=== PATIENT | male | born 1935 | race Caucasian/White ===

== ENCOUNTER 2016-06-16 22:08 | Emergency (ER) | payer MEDICARE, BC ==
[2016-06-16 22:34] LABS: Hematocrit 42 % (42-52); Hemoglobin 13.6 g/dl (14.0-18.0); Mean Corpuscular HGB Conc 33 g/dl (31-36); Mean Corpuscular Hemoglobin 31 pg (27-31); Mean Corpuscular Volume 95 fL (80-94); Mean Platelet Volume 8 um3 (7.4-10.4); Red Blood Count 4.38 10^6/ul (4.0-5.4); Red Cell Distribution Width 14 % (10.5-15); White Blood Count 9.3 10^3/ul (3.5-10.8)
[2016-06-16 22:47] LABS: Albumin 4.2 g/dL (3.2-5.2); BUN/Creatinine Ratio 13.8 (8-20); EGFR African American 99.1 (>60); Potassium 3.8 mmol/L (3.5-5.0); Total Bilirubin 0.5 mg/dL (0.2-1.0); Total Protein 7.2 g/dL (6.4-8.9)
--- NOTE | 2016-06-16 23:09 | RAD ---
INDICATION: Fall down stairs. Struck head. COMPARISON: February 25, 2009 TECHNIQUE: Multidetector CT images foramen magnum to lung apices without contrast. Multiplanar reformation. REPORT: Calcific plaque at the carotid bifurcations. Negative for cervical vertebral fracture or facet subluxation at any level. Negative for paravertebral hematoma. Diffuse advanced degenerative spondylosis and facet joint osteoarthritis with interval worsening compared with the 2009 exam. C2-C3: Negative for significant spinal stenosis. C3-C4: Ankylosis at the posterior margins of the vertebral bodies and facet joints. Significant dorsal spondylitic ridging with resulting moderate acquired central canal stenosis with interval worsening. Uncinate process spurring and facet joint osteoarthritis results in moderately severe LEFT foraminal stenosis with interval worsening. C4-C5: Uncinate process spurring and facet joint osteoarthritis results in mild bilateral foraminal stenosis. C5-C6: Dorsal spondylitic ridging results in mild acquired central canal stenosis. Uncinate process spurring and facet joint osteoarthritis results in mild LEFT foraminal stenosis. C6-C7: Significant dorsal spondylitic ridging results in mild to moderate acquired central canal stenosis with interval worsening. Uncinate process spurring and facet joint osteoarthritis results in moderate RIGHT and mild LEFT foraminal stenosis with interval worsening. IMPRESSION: 1. Negative for traumatic cervical spine injury. 2. Interval progression of multilevel advanced degenerative spondylosis and facet joint osteoarthritis with worsening of spinal stenosis compared with the 2009 exam as described.
--- NOTE | 2016-06-16 23:17 | RAD ---
Indication: Fell and struck head. Comparison: February 25, 2009 Technique: Noncontrast CT vertex of skull through foramen magnum. Report: Mild prominence of the cerebral sulci. Atrophy of the cerebellar vermis similar to the prior exam. Negative for duncan matter white matter obscuration, intra or extra-axial hemorrhage, or mass effect. Patent basal cisterns. Negative for calvarial or skull base fracture. Small mucous retention cyst or polyp at the medial wall of the RIGHT maxillary sinus. Negative for paranasal sinus fluid levels. Clear mastoid air spaces. Small RIGHT para midline posterior neck/occipital region scalp hematoma measuring up to 2.7 cm transverse by 0.9 cm AP. Negative for subcutaneous emphysema. IMPRESSION: 1. No evidence for traumatic brain injury. 2. Small RIGHT para midline posterior neck/occipital region scalp hematoma. 3. Mild cerebral and cerebellar vermis atrophy.
--- NOTE | 2016-06-17 00:46 | ED ---
negra Victor Timothy, scribed for Mike Desai MD on 06/16/16 at 2221 . Head Injury - HPI Summary HPI Summary: Alvin Nance is an 80 yo male [facility] a fall down approximately 6 steps at 2130. He reports that there was head trauma, but denies syncope. There are skin abrasions bilaterall on the upper extremities. Pt reports EtOH consumption of "more than I should have". He states there was carpeting on the stair treads. He states his 6/10 pain is in the lower back. He is on coumadin. His MHx includes CAD, triple bypass, Afib, HTN, anemia, osteoarthritis, tobacco use. - History Of Current Complaint Chief Complaint: EDTraumaMultiple Stated Complaint: FALL Time Seen by Provider: 06/16/16 22:15 Hx Obtained From: Patient Mechanism Of Injury: Fall From Height Of: - 6 stairs Onset/Duration: Started Minutes Ago, Still Present Onset of Pain: Immediate Severity Currently: Moderate Severity Initially: Moderate Pain Intensity: 6 Pain Scale Used: 0-10 Numeric Location: Discrete At: - lower back Anticoagulant Therapy: Coumadin - Allergies/Home Medications Allergies/Adverse Reactions: Allergies Allergy/AdvReac Type Severity Reaction Status Date / Time Codeine Allergy Severe Diarrhea Verified 12/22/15 06:52 ASPIRIN/NSAIDS Allergy Severe See Comment Uncoded 12/22/15 06:52 PMH/Surg Hx/FS Hx/Imm Hx Endocrine/Hematology History: Reports: Hx Anemia - ON MEDICATION FOR Cardiovascular History: Reports: Hx Coronary Artery Disease - 09/08/15-[facility] BYPASS-[facility], Hx Hypertension - ON MEDICATION FOR Denies: Hx Pacemaker/ICD GI History: Reports: Other GI Disorders - EXCESS GAS, DIARRHEA AT TIMES Musculoskeletal History: Reports: Hx Arthritis - OSTEO, Other Musculoskeletal History - SPINAL STENOSIS Sensory History: Reports: Hx Cataracts - BILAT, Hx Contacts or Glasses - GLASSES , Hx Glaucoma - BILATERAL Denies: Hx Hearing Aid Opthamlomology History: Reports: Hx Cataracts - BILAT, Hx Contacts or Glasses - GLASSES, Hx Glaucoma - BILATERAL - Surgical History Surgery Procedure, Year, and Place: TONSILLECTOMY & CIRCUMCISION [facility]. RIGHT ROTATOR CUFF [id number]. RIGHT CARPAL TUNNEL [id number]. LEFT ULNAR/RADIAL STEEL BING INSERTION/LEFT SHOULDER REPLACEMENT [place]. RIGHT FIBULA STEEL REPLACEMENT -2008 [place]. LEFT & RIGHT LEG VARICOSITIES REMOVED-[facility] 08/2014-[facility]. SKIN CANCER BEHIND LEFT EAR- WITH [id number] Hx Anesthesia Reactions: No Infectious Disease History: Denies: Traveled Outside the [place] in Last 30 Days - Family History Known Family History: Positive: Cardiac Disease, Hypertension Negative: Diabetes - Social History Alcohol Use: Daily Alcohol Amount: 1-2 DAILY Substance Use Type: Reports: None Hx Tobacco Use: Yes Smoking Status (MU): Former Smoker Type: Cigarettes Amount Used/How Often: UP TO 4 PPD DAILY X 30 YEARS Length of Time of Smoking/Using Tobacco: 30 YRS Have You Smoked in the Last Year: No Review of Systems Constitutional: Other - EtOH consumption Eyes: Negative ENT: Negative Cardiovascular: Negative Respiratory: Negative Gastrointestinal: Negative Genitourinary: Negative Musculoskeletal: Other - lower back pain Skin: Negative Neurological: Other - head trauma Psychological: Normal All Other Systems Reviewed And Are Negative: Yes Physical Exam Triage Information Reviewed: Yes Vital Signs On Initial Exam: Initial Vitals Temp Pulse Resp BP Pulse Ox 97 F 59 15 125/82 98 06/16/16 22:12 06/16/16 22:12 06/16/16 22:12 06/16/16 22:12 06/16/16 22:12 Vital Signs Reviewed: Yes Appearance: Positive: Well-Appearing, Pain Distress - mild discomfort. aob Skin: Positive: Warm Head/Face: Positive: Normal Head/Face Inspection Eyes: Positive: JIMBO ENT: Positive: Hearing grossly normal Neck: Positive: Nontender Respiratory/Lung Sounds: Positive: Clear to Auscultation, Breath Sounds Present Cardiovascular: Positive: RRR Abdomen Description: Positive: Nontender, Soft Musculoskeletal: Positive: Other - rt wrist swollen, deformity Neurological: Positive: Alert, Oriented to Person Place, Time, NV Bundle Intact Distally Psychiatric: Positive: Affect/Mood Appropriate Procedures - Splinting Hand-Made Type: orthoglass Splint: thumb spica Pre-Proc Neuro Vasc Exam: normal Post-Proc Neuro Vasc Exam: normal Diagnostics - Vital Signs Vital Signs Temp Pulse Resp BP Pulse Ox 06/16/16 22:12 97 F 59 15 125/82 98 - Laboratory Lab Results: Lab Results 06/16/16 06/16/16 06/16/16 Range/Units 22:22 22:22 22:22 WBC 9.3 (3.5-10.8) 10^3/ul RBC 4.38 (4.0-5.4) 10^6/ul Hgb 13.6 L (14.0-18.0) g/dl Hct 42 (42-52) % MCV 95 H (80-94) fL MCH 31 (27-31) pg MCHC 33 (31-36) g/dl RDW 14 (10.5-15) % Plt Count 256 (150-450) 10^3/ul MPV 8 (7.4-10.4) um3 Neut % (Auto) 63.0 (38-83) % Lymph % (Auto) 17.1 L (25-47) % Latimer % (Auto) 7.2 (1-9) % Eos % (Auto) 8.3 H (0-6) % Baso % (Auto) 4.4 H (0-2) % Absolute Neuts (auto) 5.9 (1.5-7.7) 10^3/ul Absolute Lymphs (auto) 1.6 (1.0-4.8) 10^3/ul Absolute Monos (auto) 0.7 (0-0.8) 10^3/ul Absolute Eos (auto) 0.8 H (0-0.6) 10^3/ul Absolute Basos (auto) 0.4 H (0-0.2) 10^3/ul Absolute Nucleated RBC 0.01 10^3/ul Nucleated RBC % 0.1 Sodium 136 (133-145) mmol/L Potassium 3.8 (3.5-5.0) mmol/L Chloride 100 L (101-111) mmol/L Carbon Dioxide 26 (22-32) mmol/L Anion Gap 10 (2-11) mmol/L BUN 13 (6-24) mg/dL Creatinine 0.94 (0.67-1.17) mg/dL Est GFR ( Amer) 99.1 (>60) Est GFR (Non-Af Amer) 77.0 (>60) BUN/Creatinine Ratio 13.8 (8-20) Glucose 118 H (70-100) mg/dL Lactic Acid 2.9 H* (0.5-2.0) mmol/L Calcium 9.0 (8.6-10.3) mg/dL Total Bilirubin 0.50 (0.2-1.0) mg/dL AST 30 (13-39) U/L ALT 23 (7-52) U/L Alkaline Phosphatase 67 (34-104) U/L Total Protein 7.2 (6.4-8.9) g/dL Albumin 4.2 (3.2-5.2) g/dL Globulin 3.0 (2-4) g/dL Albumin/Globulin Ratio 1.4 (1-3) Serum Alcohol 249 H (<10) mg/dL Result Diagrams: 06/16/16 22:22 06/16/16 22:22 Lab Statement: Any lab studies that have been ordered have been reviewed, and results considered in the medical decision making process. - Radiology R humerus Xray Interpretation: Positive (See Comments) - distal radial fracture Radiology Interpretation Completed By: ED Physician R wrist Xray Interpretation: Positive (See Comments) - distal radial fracture Radiology Interpretation Completed By: ED Physician - CT C-Spine CT Interpretation: No Acute Changes - IMPRESSION: 1. Negative for traumatic cervical spine injury. 2. Interval progression of multilevel advanced degenerative spondylosis and facet joint osteoarthritis with worsening of spinal stenosis compared with the [address] Interpretation Completed By: Radiologist Brain CT Interpretation: No Acute Changes - IMPRESSION: 1. No evidence for traumatic brain injury. 2. Small RIGHT para midline posterior neck/occipital region scalp hematoma. 3. Mild cerebral and cerebellar vermis atrophy. CT Interpretation Completed By: Radiologist - EKG 7 Cardiac Rate: NL - 60 BPM EKG Interpretation: NSR @ 60 BPM, LVH Re-Evaluation - Re-Evaluation First Eval Re-Evaluation Time: 00:40 Change: Unchanged Comment: Discussed imaging study and lab results with Pt. Head Injury Course/Dx Assessment/Plan: Alvin Nance is an 80 yo male presenting to [facility] with 6/ 10 lower back pain and head trauma without syncope S/P a fall down 6 steps. After clinical examination, EKG suggesting NSR with LVH, CT Brain suggesting no traumatic injury, CT C-Spine with no traumatic injury, X-rays of his right humerus and wrist suggesting a distal fracture of the right radius, and review of his lab work, notably a lactic acid of 2.9 and a serum alcohol of 249, he will be discharged home with a distal fracture of the right wrist and alcohol intoxication with appropriate instructions. - Diagnoses Provider Diagnoses: Distal radius fracture, right, Alcohol intoxication Discharge - Discharge Plan Condition: Stable Disposition: HOME Patient Education Materials: Wrist Fracture in Adults (ED) Referrals: Cayla Velasquez MD [Primary Care Provider] - 2 Days Radhika Wild MD [Medical Doctor] - 2 Days Additional Instructions: Please follow up with Dr. Wild regarding your visit to the emergency department today. Return to the emergency department with any new or recurring symptoms. The documentation as recorded by the negra odom Timothy accurately reflects the service I personally performed and the decisions made by me, Mike Desai MD.
[2016-06-17 01:17] VITALS: BP 99/56
--- NOTE | 2016-06-17 07:46 | RAD ---
INDICATION: Wrist pain after a fall COMPARISON: None. TECHNIQUE: 2 views right wrist and 4 views of the right upper arm were obtained. REPORT: There is a displaced fracture through the distal right radial metaphysis with the distal fracture fragment displaced laterally and dorsally relative to the proximal shaft of the radius. The remaining visualized bones of the wrist appear to be appropriately aligned. There is no fracture visible overlying the right humerus. Degenerative changes of the right shoulder include sclerotic change of the bony glenoid labrum with marginal osteophyte formation. IMPRESSION: Displaced distal right radius fracture as described above.
== END 2016-06-17 01:15 | disposition home or self-care (01) ==
LOC: ED 22:08
DX: S52.501A Unspecified fracture of the lower end of right radius, initial encounter for closed fracture (principal); F10.129 Alcohol abuse with intoxication, unspecified; Y90.8 Blood alcohol level of 240 mg/100 ml or more; M54.5 Low back pain; Z87.891 Personal history of nicotine dependence; W10.9XXA Fall (on) (from) unspecified stairs and steps, initial encounter; Y93.9 Activity, unspecified; Y92.9 Unspecified place or not applicable
CPT/HCPCS: 36415; 70450; 72125; 80053; 80320; 83605; 85025; 93005; 99283; G0480

== ENCOUNTER 2016-07-05 06:38 | Day surgery (SDC) | payer MEDICARE, BC ==
--- NOTE | 2016-06-30 14:58 | HP ---
PREOPERATIVE HISTORY AND PHYSICAL: DATE OF SURGERY/ADMISSION: 07/05/16 DATE OF OFFICE VISIT/ENCOUNTER: 06/22/16 ATTENDING SURGEON: Radhika Wild MD RESTAURANT AREA DIRECTOR: Dr. Quiles. PRIMARY CARE PHYSICIAN: Dr. Velasquez. PROCEDURE: Right wrist radius open reduction and internal fixation. CHIEF COMPLAINT: Right wrist radius fracture. HISTORY OF PRESENT ILLNESS: This is an 80-year-old male who sustained injury to his right wrist on 06/16/16 when he fell down the stairs at his home. He was seen at [facility] and had an x-ray which showed a distal fracture at the junction of the metaphysis and diaphysis of the radius. He was splinted and referred to Dr. Wild for followup. After clinical examination and review of X- ray, Dr. Wild has recommended surgical intervention in the form of a right wrist radius open reduction and internal fixation and the patient has consented to agree. He is followed by Dr. Quiles, general maintenance mechanic, for cardiovascular disease and takes Coumadin on a regular basis. Per Dr. Quiles, the patient stopped Coumadin on 06/29/16. He will follow up with Dr. Quiles 2 weeks postop for further Coumadin use considerations. PAST MEDICAL HISTORY: 1. Chronic ischemic heart disease. 2. Post inflammatory pulmonary fibrosis. 3. Dyspnea. 4. Arteriosclerosis. 5. Chronic atrial fibrillation. 6. Anemia. 7. Hyperlipidemia. 8. Hypertension. 9. History of heart attack. 10. BPH. PAST SURGICAL HISTORY: 1. 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 2. Left forearm ORIF. 3. Left shoulder replacement. 4. Right knee surgery. CURRENT MEDICATIONS: 1. Amiodarone HCl 200 mg daily. 2. Atorvastatin calcium 10 mg daily. 3. Finasteride 5 mg daily. 4. Flaxseed oil 1200 mg twice daily. 5. Furosemide 40 mg daily. 6. Lisinopril 10 mg 2 tabs daily. 7. Metformin HCl ER 750 mg daily. 8. Metoprolol succinate ER 50 mg one and a half tabs twice a day. 9. Multivitamin 1 tab daily. 10. Potassium chloride ER 10 mEq daily. 11. Restasis 0.05% one drop each eye twice a day. 12. Warfarin sodium as directed. ALLERGIES: 1. CODEINE causes nausea and vomiting. 2. NSAIDs caused stomach upset. FAMILY MEDICAL HISTORY: Heart disease. SOCIAL HISTORY: The patient is retired. He is a former smoker. He quit smoking in 1979. He smoked prior to that for approximately 30 years. He denies recreational drug use. Does admit to alcohol use on a regular occasion. REVIEW OF SYSTEMS: General: Negative for fevers, chills or night sweats. No known anesthesia problems. HEENT: Negative for headache, lightheadedness or syncopal episodes. Integumentary: Negative for abrasions, lesions or open wounds. Cardiothoracic: Positive for hypertension and history of cardiac disease. Negative for current chest pain, palpitations or edema. Pulmonary: Positive for shortness of breath with exertion. Negative for chronic cough or COPD. GI: Negative for nausea, vomiting, diarrhea, constipation or GERD. : Positive for nocturia and urinary frequency. Negative for history of UTIs or kidney problems. Musculoskeletal: Positive for current complaints. Neurological: Negative for paresthesias, numbness, history of seizures, stroke or epilepsy. Endocrine: Negative for diabetes or thyroid issues. Hematologic: Positive for easy bruising and easy bleeding secondary to Coumadin. Negative for anemia or history of DVTs. Infectious Disease: Negative for history of MRSA , hepatitis C or HIV. PHYSICAL EXAMINATION GENERAL: Well-developed, well-nourished 80-year-old male, in no acute distress. VITAL SIGNS: Height 5 feet 9 inches, weight 169 pounds, pulse rate 68, blood pressure 102/58. HEENT: Normocephalic, atraumatic. Pupils are equal, round and reactive to light and accommodation. Extraocular movements are intact. Throat is clear. NECK: Supple. No palpable lymph nodes. PULMONARY: Lungs are clear to auscultation bilaterally. No wheezes, rales or rhonchi. CARDIOVASCULAR: Regular rate and rhythm. S1, and S2. No murmurs, rubs or gallops. No edema. ABDOMEN: Positive bowel sounds. Soft and nontender. MUSCULOSKELETAL: On exam of his right wrist, there is minimal swelling about the wrist and into the fingers. He has good range of motion of his fingers and good motion of the elbow. He has ecchymosis present at the lateral aspect of the right elbow. Distal neurovascular function is intact. NEUROLOGIC: Alert and oriented x3. Cranial nerves II through XII are intact. Sensation is intact to light touch. Peripheral vascular, 2+ radial and ulnar pulses. IMAGING STUDIES: X-rays of the right wrist show a right radius distal fracture at the junction of the metaphysis and diaphysis. IMPRESSION: Right wrist distal radius fracture. PLAN: The patient is scheduled to undergo a right wrist radius open reduction and internal fixation with Dr. Wild on 07/05/16. He will return to the office 10 to 14 days postop for followup and suture removal. The patient has a supply of Oakwood from the emergency room and that will be refilled as needed for postoperative pain management. He recently saw his general maintenance mechanic, Dr. Quiles and his opinion letter of medical clearance for surgery from Dr. Velasquez, his primary care physician. LÁZARO BLANCO [id number]/[facility] #: [id number] MTDD
[~2016-07-05 06:38] MED LIST: Buffered Lidocaine 1% SYRIN* 3 ML/SYR SYRINGE INTRADERM ONE; Famotidine IV* 10 MG/ML 2 ML (20 mg) IV ONE
[2016-07-05] MEDS ORDERED: ceFAZolin 2 GM PREMIX(*) 2 GM/50 ML BAG IVPB ONE (06:46)
[2016-07-05] MEDS ORDERED: Famotidine IV* 10 MG/ML 2 ML (20 mg) ONE (06:47)
[2016-07-05] MEDS ORDERED: Bupivacaine 0.5% SDV PF* 30 ML VIAL ONE (06:58)
[2016-07-05] MEDS ORDERED: Midazolam* 1 MG/ML 5 ML VIAL (5 MG) ONE (07:38)
[2016-07-05] MEDS ORDERED: fentaNYL* 50 MCG/ML 2 ML VIAL (100 MCG VIAL) ONE ×2 (07:38→08:42)
[2016-07-05] MEDS ORDERED: KETAMINE HCL* 50 MG/ML 10 ML VIAL ONE (07:39)
[2016-07-05] MEDS ORDERED: Lidocaine 2% PF * 5 ML VIAL ONE (08:29)
[2016-07-05] MEDS ORDERED: Ketorolac INJ* 30 MG/ML 1 ML VIAL ONE (08:29)
[2016-07-05] MEDS ORDERED: Ondansetron INJ* 2 MG/ML VIAL ONE (08:29)
[2016-07-05] MEDS ORDERED: Propofol* 10 MG/ML 20 ML BTL IV PUSH ONE (08:29)
[2016-07-05] MEDS ORDERED: Dexamethasone IV* 4 MG/ML 1 ML (4 MG) ONE (08:29)
[2016-07-05] MEDS ORDERED: DiMENhydriNATE IV* 50 MG/ML VIAL IV PUSH PRN (08:53)
[2016-07-05] MEDS ORDERED: HYDROmorphone* 1 MG/ML 1 ML SYR IV PRN (08:53)
[2016-07-05] MEDS ORDERED: HYDROcodone/ACETAMIN 5-325 MG* 1 TAB PO PRN (08:53)
[2016-07-05] MEDS ORDERED: HYDROcodone/ACETAMIN 5-325 MG* 1 TAB ONE (09:31)
[2016-07-05] MEDS ORDERED: HYDROmorphone* 1 MG/ML 1 ML SYR ONE (09:51)
[2016-07-05 10:27] VITALS: BP 134/62
--- NOTE | 2016-07-06 00:45 | OP ---
DATE OF OPERATION: 07/05/16 [facility] DATE OF : 33 SURGEON: Radhika Wild MD. FLORAL ASSOCIATE: LÁZARO Romano. ANESTHESIOLOGIST: Lucy Terrell MD ANESTHESIA: General. PRE-OP DIAGNOSIS: Radius fracture on the right. POST-OP DIAGNOSIS: Radius fracture on the right. OPERATIVE PROCEDURE: Open reduction internal fixation, right radius. ESTIMATED BLOOD LOSS: Zero. TOURNIQUET TIME: About 45 minutes. INDICATION FOR PROCEDURE: Alvin is an 80-year-old male who suffered a fracture of his right radius after a fall. He presents for open reduction internal fixation as the fracture is displaced. DESCRIPTION OF PROCEDURE: The patient was brought to the operating room, was given a general anesthetic and placed in the supine position on the operating table with a tourniquet around his right upper arm. The skin of his right upper extremity was prepped and draped in the usual sterile fashion. A longitudinal incision was made on the volar aspect of the forearm over the FCR tendon. We dissected through the FCR tendon sheath superficial and deep and retracted the FPL muscles ulnarly. The pronator quadratus was subperiosteally dissected off the distal radius. There was some mild comminution of the fracture. The fracture was at approximately 1 cm distal to the metaphyseal- diaphyseal junction. The fracture was reduced and held with a reduction clamp and then secured with a metadiaphyseal Synthes plate with 4 distal and 4 proximal screws. Most of the screws were locking screws. The position of the hardware and fracture fragments were checked on the C-arm in the AP and lateral views and found to be satisfactory. The wound was copiously irrigated with saline. The flexor carpi radialis tendon sheath was repaired with 2-0 Polysorb suture. Skin edges were reapproximated with 4-0 nylon sutures and wound was dressed with Xeroform, 4x4, Webril, and a volar splint. The patient tolerated the procedure well and was brought to the recovery room in good condition. [id number]/[facility] #: [id number] MTDD
== END 2016-07-05 10:25 | disposition home or self-care (01) ==
LOC: OREAST 06:38
PROVIDERS: ATTEND Orthopaedic Surgery
DX: S52.591A Other fractures of lower end of right radius, initial encounter for closed fracture (principal); I25.9 Chronic ischemic heart disease, unspecified; Z87.891 Personal history of nicotine dependence; Z95.1 Presence of aortocoronary bypass graft; I48.2 Chronic atrial fibrillation; Z79.01 Long term (current) use of anticoagulants; I25.2 Old myocardial infarction; E11.8 Type 2 diabetes mellitus with unspecified complications; Z79.84 Long term (current) use of oral hypoglycemic drugs; I10 Essential (primary) hypertension; W10.9XXA Fall (on) (from) unspecified stairs and steps, initial encounter; Y92.009 Unspecified place in unspecified non-institutional (private) residence as the place of occurrence of the external cause
CPT/HCPCS: C1713; C1776; J0690; J1100; J1170; J1885; J2250; J2405; J2704; J3010

== ENCOUNTER 2016-10-24 03:08 | Emergency (ER) | payer MEDICARE, BC ==
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
[2016-10-24 04:25] VITALS: BP 164/78
--- NOTE | 2016-10-24 07:59 | RAD ---
HISTORY: Left forearm swelling COMPARISONS: None relevant available at the time of dictation VIEWS: 3, Frontal, lateral, and oblique views of the left forearm FINDINGS: BONE DENSITY: Normal. BONES: The patient is status post internal fixation of the mid and the distal radius and the distal ulna. There is no appreciable hardware failure or osteolysis. There is no appreciable erosion or periosteal reaction. JOINTS: There is osteoarthritis of the wrist and elbow ALIGNMENT: There is no dislocation. SOFT TISSUES: There is soft tissue swelling along the anterior aspect of the mid forearm OTHER FINDINGS: None. IMPRESSION: 1. STATUS POST INTERNAL FIXATION OF THE RADIUS AND ULNA. 2. OSTEOARTHRITIS. 3. SOFT TISSUE SWELLING. 4. NO APPRECIABLE EROSION OR PERIOSTEAL REACTION.
== END 2016-10-24 04:24 | disposition home or self-care (01) ==
LOC: ED 03:08
DX: M79.632 Pain in left forearm (principal); M79.89 Other specified soft tissue disorders; E11.9 Type 2 diabetes mellitus without complications; I25.10 Atherosclerotic heart disease of native coronary artery without angina pectoris; I10 Essential (primary) hypertension; Z95.1 Presence of aortocoronary bypass graft; Z96.612 Presence of left artificial shoulder joint; Z88.6 Allergy status to analgesic agent; Z88.5 Allergy status to narcotic agent
CPT/HCPCS: 99282

== ENCOUNTER → 2016-12-22 21:47 | Emergency (ER) | payer MEDICARE, BC ==
[2016-12-22 23:30] LABS: Hematocrit 38 % (42-52); Hemoglobin 12.9 g/dl (14.0-18.0); Mean Corpuscular HGB Conc 34 g/dl (31-36); Mean Corpuscular Hemoglobin 32 pg (27-31); Mean Corpuscular Volume 93 fL (80-94); Mean Platelet Volume 8 um3 (7.4-10.4); Red Blood Count 4.08 10^6/ul (4.0-5.4); Red Cell Distribution Width 16 % (10.5-15); White Blood Count 7.4 10^3/ul (3.5-10.8)
[2016-12-22 23:46] LABS: ALT 35 U/L (7-52); Albumin 4.2 g/dL (3.2-5.2); Alkaline Phosphatase 65 U/L (34-104); BUN/Creatinine Ratio 20.3 (8-20); Blood Urea Nitrogen 16 mg/dL (6-24); CO2 Carbon Dioxide 22 mmol/L (22-32); Calcium 8.9 mg/dL (8.6-10.3); Chloride 109 mmol/L (101-111); EGFR African American 120.8 (>60); EGFR Non-African American 93.9 (>60); Glucose 124 mg/dL (70-100); Sodium 141 mmol/L (133-145); Total Protein 7.2 g/dL (6.4-8.9)
[2016-12-22 23:56] LABS: Anion Gap 10 mmol/L (2-11)
[2016-12-23 00:03] LABS: Alcohol 242 mg/dL (<10)
[2016-12-23 00:03] LABS: Benzodiazepine Urine Screen None Detected (None Detect)
[2016-12-23 05:35] VITALS: BP 153/66
--- NOTE | 2016-12-23 07:38 | RAD ---
INDICATION: Fall. + EtOH COMPARISON: Most recent comparison chest x-rays dated December 30, 2015 TECHNIQUE: Single AP portable view of the chest was obtained. FINDINGS: Image quality is compromised due to the relative inferiority of a portable chest x-ray. Postsurgical changes include left shoulder arthroplasty, sternotomy wires and surgical clips overlying the mediastinum. Again seen is mild cardiomegaly with faint calcification overlying the arch of the aorta. The lungs are grossly clear. There is no evidence of a large pleural effusion. Visualized bones are normal for the patient's age. IMPRESSION: No radiographic evidence for acute cardiopulmonary abnormality on this portable chest x-ray.
--- NOTE | 2016-12-23 07:40 | RAD ---
INDICATION: Fall. + EtOH COMPARISON: CT of the brain June 16, 2016 TECHNIQUE: Contiguous axial sections of the brain were obtained from the skull base to the vertex without contrast. FINDINGS: The ventricles, cisterns and sulci exhibit involutional changes similar in appearance to the prior CT examination. There is mild periventricular and subcortical white matter hypoattenuation most consistent with chronic microvascular disease.. The duncan-white matter differentiation is adequately maintained and there is no sulcal effacement. No significant focal abnormality or mass effect is present. There is no evidence for intracranial hemorrhage. Again seen is engorgement of the bilateral ophthalmic veins, greater at the right than the left. No significant focal osseous abnormality is present. The visualized portion of the paranasal sinuses and mastoid air cells appear clear. IMPRESSION: 1. No CT apparent acute intracranial abnormality. 2. Right greater than left engorgement of the ophthalmic veins of uncertain clinical significance.
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
== END | disposition home or self-care (01) ==
LOC: ED 21:47
DX: F10.129 Alcohol abuse with intoxication, unspecified (principal); R47.81 Slurred speech; Z87.891 Personal history of nicotine dependence
CPT/HCPCS: 36415; 70450; 71010; 80053; 80307; 80320; 85025; 99284; G0480

== ENCOUNTER 2018-11-11 14:29 | Emergency (ER) | payer MEDICARE, BC ==
[2018-11-11 14:40] VITALS: BP 129/81
--- NOTE | 2018-11-11 15:23 | UC ---
Lower Extremity/Ankle HPI - HPI Summary HPI Summary: Bilat. knee swelling for a few days, some pain. - History of Current Complaint Chief Complaint: UCLowerExtremity Stated Complaint: R KNEE SWELLING Time Seen by Provider: 11/11/18 14:47 Hx Obtained From: Patient Onset/Duration: Sudden Onset, Lasting Days - 2 Severity Initially: Mild Severity Currently: Mild Pain Intensity: 2 Aggravating Factor(s): Standing, Ambulation Alleviating Factor(s): Nothing Able to Bear Weight: Yes - Risk Factors Gout Risk Factors: Age Over 40, Peripherial Vascular Disease - Allergies/Home Medications Allergies/Adverse Reactions: Allergies Allergy/AdvReac Type Severity Reaction Status Date / Time codeine Allergy Diarrhea Verified 11/11/18 14:40 ASPIRIN/NSAIDS Allergy Severe See Comment Uncoded 11/11/18 14:40 SEASONAL Allergy Mild Congestion Uncoded 11/11/18 14:40 Home Medications: Home Medications Amiodarone TAB* [Cordarone TAB*] 100 mg PO DAILY 11/11/18 [History Confirmed 03/31] Imatinib Mesylate [Gleevec] 400 mg PO DAILY 11/11/18 [History Confirmed 11/11/18 ] Metoprolol Succinate XL TAB* [Toprol XL TAB*] 75 mg PO BID 11/11/18 [History Confirmed 11/11/18] Multivitamin [Multivitamins] 1 cap PO DAILY 11/11/18 [History Confirmed 11/11/18 ] PMH/Surg Hx/FS Hx/Imm Hx Previously Healthy: No Cardiovascular History: Cardiac Disease, Atrial Fibrillation Cancer History: Other - CML - Surgical History Surgical History: Yes Surgery Procedure, Year, and Place: TONSILLECTOMY & CIRCUMCISION 1939 [facility]. RIGHT ROTATOR CUFF [id number]. RIGHT CARPAL TUNNEL [id number]. LEFT ULNAR/RADIAL STEEL BING INSERTION/LEFT SHOULDER REPLACEMENT [place]. RIGHT FIBULA STEEL REPLACEMENT -2008 [place]. LEFT & RIGHT LEG VARICOSITIES REMOVED-[facility] [place] 2012. 08/2014-TRIPLE BYPASS-[facility]. SKIN CANCER BEHIND LEFT EAR- WITH [id number] - Family History Known Family History: Positive: Cardiac Disease, Hypertension Negative: Diabetes - Social History Alcohol Use: Daily Alcohol Amount: 1-2 DAILY Substance Use Type: None Smoking Status (MU): Former Smoker Type: Cigarettes Amount Used/How Often: UP TO 4 PPD DAILY X 30 YEARS Length of Time of Smoking/Using Tobacco: 30 YRS Have You Smoked in the Last Year: No When Did the Patient Quit Smoking/Using Tobacco: 30 YEARS AGO Review of Systems All Other Systems Reviewed And Are Negative: Yes Musculoskeletal: Positive: Edema Is Patient Immunocompromised?: No Physical Exam Triage Information Reviewed: Yes Appearance: Well-Appearing, Well-Nourished, Pain Distress Vital Signs: Initial Vital Signs Temp 97.7 F 11/11/18 14:33 Pulse 88 11/11/18 14:33 Resp 16 11/11/18 14:33 BP 129/81 11/11/18 14:33 Pulse Ox 97 11/11/18 14:33 Vital Signs Reviewed: Yes Eye Exam: Normal Eyes: Positive: Other: - edematous bags under eyes ENT Exam: Normal Dental Exam: Normal Neck exam: Normal Respiratory Exam: Normal Respiratory: Positive: Chest non-tender, Lungs clear, Normal breath sounds, No respiratory distress, No accessory muscle use Cardiovascular: Positive: Other: - Irregularly, irregular HR, aortic murmur noted Abdominal Exam: Normal Abdomen Description: Positive: Nontender, No Organomegaly, Soft Bowel Sounds: Positive: Present Musculoskeletal: Positive: Edema @ - bilateral lower extremities, +2-+3 pitted on right, +1 pitted on left., ++PP, no erythema or weeping Neurological Exam: Normal - good color and sensation Psychological Exam: Normal Skin Exam: Normal Lower Extremity Course/Dx - Course Course Of Treatment: hx obtained, exam performed ,meds reviewed, patient does not complain of pain, there is no sign of infection. 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 compression wraps applied today and recommend go home, rest and elevated for the next 2 days. If not improving, or if he develops any other symptoms, needs to follow up with his PCP office for further workup. - Differential Dx/Diagnosis Differential Diagnosis/HQI/PQRI: Arthritis, Bursitis, Cellulitis, Contusion, Gout, Sprain, Strain Provider Diagnosis: PVD (peripheral vascular disease) Discharge ED - Sign-Out/Discharge Documenting (check all that apply): Patient Departure All imaging exams completed and their final reports reviewed: No Studies - Discharge Plan Condition: Stable Disposition: HOME Patient Education Materials: Peripheral Vascular Disease (ED) Referrals: Cayla Velasquez MD [Primary Care Provider] - Additional Instructions: 1. Continue to use compression and elevation to help relieve the leg of edema. 2. Continue your current medication regimen. 3. If you do not notice any change in swelling, it gets worse, you start getting pain or redness in the area please follow up with your primary medical office for further evaluation. - Billing Disposition and Condition Condition: STABLE Disposition: Home
== END 2018-11-11 15:21 | disposition home or self-care (01) ==
LOC: UCEAST 14:29
DX: I73.9 Peripheral vascular disease, unspecified (principal); I51.9 Heart disease, unspecified; I48.91 Unspecified atrial fibrillation; Z85.6 Personal history of leukemia; Z87.891 Personal history of nicotine dependence
CPT/HCPCS: 99211; G0463